=== PATIENT | female | born 1960 | race Caucasian/White ===

== ENCOUNTER 2018-11-10 16:03 | Observation (INO) | payer MEDICARE, MEDICAID ==
--- NOTE | 2018-11-10 16:29 | RAD ---
Chest AP view INDICATION: Chest pain COMPARISON: September 30, 2016 FINDINGS: Lungs:The lungs are clear Cardiac silhouette pulmonary vasculature:The cardiomediastinal silhouette appears within normal limit s. Pleural spaces:No pleural effusion or pneumothorax is demonstrated. Upper abdomen:No abnormality seen. Osseous structures: No acute osseous abnormality. Additional findings:None. IMPRESSION: No acute cardiopulmonary abnormality.
[2018-11-10 16:35] LABS: #Basophils 0.1 thou/uL (0.0-0.2); #Eosinphils 0.1 thou/uL (0.0-0.7); #Lymphocytes 4.4 thou/uL (1.20-3.40); #Monocytes 0.7 thou/uL (0.11-0.59); #Neutrophils 5.2 thou/uL (1.40-6.50); %Basophils 0.9 % (0.0-1.0); %Eosinophils 1.2 % (0.0-10.0); %Lymphocytes 41.9 % (21.0-51.0); %Monocytes 6.3 % (0.0-10.0); %Neutrophils 49.6 % (42.0-75.0); Hemoglobin 13.8 g/dL (12.0-16.0); Mean Corpuscular Hemoglobin 32.6 pg (27.0-31.0); Mean Corpuscular Volume 98.9 fL (78.0-98.0); Mean Platelet Volume 7.8 fL (7.4-10.4); Platelet Count 231 thou/uL (130-400); RBC Distribution Width 11.9 % (11.5-14.5); Red Blood Cell (RBC) Count 4.24 mill/uL (4.20-5.40); White Blood Cell (WBC) Count 10.5 thou/uL (4.8-10.8)
[2018-11-10 16:57] LABS: ALT (SGPT) 16 U/L (8-55); AST (SGOT) 20 U/L (5-34); Albumin 3.9 g/dL (3.5-5.0); Alkaline Phosphatase 85 U/L (40-150); Anion Gap 12 mmol/L (10-20); BUN (Urea Nitrogen) 12 mg/dL (9.8-20.1); Bilirubin, Total 0.3 mg/dL (0.2-1.2); Calc. Creatinine Clearance 0 mL/min (70-130); Calcium 9.4 mg/dL (7.8-10.44); Carbon Dioxide 25 mmol/L (22-29); Chloride 108 mmol/L (98-107); Estimated GFR-MDRD 77; Globulin 2.9 g/dL (2.4-3.5); Glucose 109 mg/dL (70-105); Potassium 3.9 mmol/L (3.5-5.1); Protein, Total 6.8 g/dL (6.0-8.3); Sodium 141 mmol/L (136-145)
[2018-11-10] MEDS ORDERED: Aspirin 325 MG TAB ONE (17:16)
[2018-11-10] MEDS ORDERED: Nitroglycerin 2% Ointment 1 INCH/1 GM Packet ONE (17:16)
[2018-11-10 17:19] LABS: CKMB 1.7 ng/mL (0-6.6)
[2018-11-10] MEDS ORDERED: Aspirin Chewable 81 MG TAB ONE (17:22)
[2018-11-10 19:29] LABS: Bilirubin Negative (Negative); Blood, Urine Negative (Negative); Clarity Clear (Clear); Glucose, Urine (Dipstick) Normal (Negative); Leukocyte Negative Leu/uL (Negative); Nitrite Negative (Negative); Protein, Urine (Dipstick) Negative (Neg-Trace); Urobilinogen Normal mg/dL (Less than 2)
[2018-11-10 19:33] LABS: Troponin I 0.049 ng/mL (< 0.028)
[2018-11-10 22:54] LABS: Troponin I 0.063 ng/mL (< 0.028)
[2018-11-11 00:39] VITALS: BMI 23.6
[2018-11-11] MEDS ORDERED: Acetaminophen 500 MG TAB PO PRN (02:54)
[2018-11-11] MEDS ORDERED: Loratadine 10 MG TAB PO PRN (02:54)
[2018-11-11] MEDS ORDERED: Nitroglycerin 0.2mg/Hour PATCH TD PRN (02:54)
[2018-11-11] MEDS ORDERED: Ondansetron ODT 4 MG TAB PO PRN (02:54)
[2018-11-11] MEDS ORDERED: Nitroglycerin 0.4 MG TAB (25 Tab Bottle) PO PRN (02:54)
[2018-11-11] MEDS ORDERED: Ondansetron PF 4 MG/2 ML Vial IVP PRN (02:54)
[2018-11-11] MEDS ORDERED: Mometasone 100 MCG HFA INHALER INH PRN (02:54)
[2018-11-11] MEDS ORDERED: Cyclobenzaprine 10 MG TAB PO PRN (02:54)
[2018-11-11] MEDS ORDERED: PROVENTIL INHALER 6.7 G (200 INHALATIONS) INH PRN (02:54)
--- NOTE | 2018-11-11 03:57 | HP ---
PRIMARY CARE PROVIDER: Dr. Alessandro Jalloh with [facility]. CHIEF COMPLAINT: Chest pain. HISTORY OF PRESENT ILLNESS: This is a 57-year-old female, who initially presented to [facility] Emergency Department complaining of central chest pain and pressure, intermittent over the last 2 weeks. The patient admits to a significant history of coronary artery disease, status post quadruple bypass in 2008. The patient also states two separate cardiac catheterizations with stent placement x2 in 1997 and 2010. The patient states she takes daily aspirin, but continues to smoke up to two packs of cigarettes daily. The patient admits to exertional chest pain relieved with rest and massaging her shoulders and back. In the emergency room, the patient underwent general evaluation including troponin I evaluation showing elevated levels ranging between 0.040 to 0.063. The patient received aspirin 324 mg and topical nitroglycerin. EKG showed no acute ST-T wave changes. The patient was placed in observation status for evaluation and cardiac workup. PAST MEDICAL HISTORY: 1. Coronary artery disease. 2. Tobacco abuse ongoing. 3. Hyperlipidemia. 4. Hypertension. PAST SURGICAL HISTORY: 1. Status post coronary artery bypass grafting x4 vessels in 2008. 2. Status post cardiac catheterization in 1997 and 2010 with stent placement x2. 3. Status post gastric sleeve. CURRENT MEDICATIONS: 1. Enteric-coated aspirin 81 mg p.o. daily. 2. Lipitor 80 mg p.o. daily. 3. Nexium 40 mg p.o. daily. 4. Metoprolol extended release 25 mg p.o. daily. 5. Vascepa one capsule p.o. b.i.d. 6. Duloxetine 30 mg p.o. daily. 7. Flexeril 10 mg p.o. t.i.d. p.r.n. 8. Fluticasone one spray in each naris daily. 9. Ventolin HFA 1 to 2 puffs inhaled q.6 hours p.r.n. ALLERGIES: TO ADENOSINE. FAMILY HISTORY: Positive for multiple family members with coronary artery disease. SOCIAL HISTORY: Resides in [place], [place]. Disabled. Smokes up to two packs of cigarettes daily. No current alcohol or illicit drug use. REVIEW OF SYSTEMS: CONSTITUTIONAL: Negative for weight loss or gain, ability to conduct usual activities. SKIN: Negative for rash, itching. EYES: Negative for double vision, pain. ENT/MOUTH: Negative for nose bleeding, neck stiffness, pain, tenderness. CARDIOVASCULAR: Negative for palpitations, dyspnea on exertion, orthopnea. RESPIRATORY: Negative for shortness of breath, wheezing, cough, hemoptysis, fever or night sweats. GASTROINTESTINAL: Negative for poor appetite, abdominal pain, heartburn, nausea, vomiting, constipation, or diarrhea. GENITOURINARY: Negative for urgency, frequency, dysuria, nocturia. MUSCULOSKELETAL: Negative for pain, swelling. NEUROLOGIC/PSYCHIATRIC: Negative for anxiety, depression. ALLERGY/IMMUNOLOGIC: Negative for skin rash, bleeding tendency. Otherwise negative except as stated per HPI. PHYSICAL EXAMINATION: VITAL SIGNS: On admission, blood pressure 112/56, pulse 52, respiratory rate 12, temperature 98.4 degrees Fahrenheit, O2 saturation 97% on room air. GENERAL APPEARANCE: This is a 57-year-old female, alert and oriented x3, pleasant, smiling, in no acute distress. HEENT: Pupils are equal, round, reactive to light and accommodation. Extraocular muscles are intact. No scleral icterus. No conjunctival injection. Nares are patent. OP is clear. NECK: Supple. No cervical adenopathy. No thyromegaly. No carotid bruits. No JVD appreciated. Cervical spine with full active and passive range of motion. No meningeal signs noted. CHEST: Diminished breath sounds in bases bilaterally. CARDIOVASCULAR: S1-S2 without noted murmur, rub, or gallop. Mild tenderness to palpation in the left upper chest wall and lateral pectoralis muscle. ABDOMEN: Rounded, soft, nontender, and nondistended. Bowel sounds are positive in all 4 quadrants. There is no hepatosplenomegaly. No abdominal bruits. No rebound or guarding appreciated. EXTREMITIES: Warm and dry with fair turgor. No clubbing, cyanosis, or asymmetric edema appreciated. Pulses palpable distally at the dorsalis pedis, posterior tibial, and popliteal arteries bilaterally. Capillary refill less than 2 seconds. NEUROLOGIC: Cranial nerves 2 through 12 are grossly intact. No focal or lateralizing signs appreciated. PERTINENT LAB AND X-RAY FINDINGS: Basic metabolic profile within normal limits. Troponin I ranged between 0.040 to 0.063. BNP 118. CBC showed a white blood cell count of 10.5, hemoglobin 14, hematocrit 42, MCV 99, platelet count 231 with normal differential. Urinalysis negative. Portable chest x-ray dated 11/10/2018, showed no acute cardiopulmonary process. EKG dated 11/10/2018 by my interpretation shows sinus mechanism with heart rates in the 60s. Normal R-wave progression noted in the precordial leads. Normal axis. No acute ST-T wave changes appreciated. ASSESSMENT AND PLAN: 1. Non-ST elevation myocardial infarction type 2. The patient will be observed on the telemetry unit. We will consult Cardiology Service in the a.m. Continue aspirin 325 mg daily. Nitroglycerin 0.2 mg transdermally daily. Check fasting lipid profile in the a.m. Check 2D transthoracic echocardiogram. The patient will need cardiac catheterization to further delineate coronary anatomy. 2. Coronary artery disease. See #1 above. Continue aspirin 325 mg daily. 3. Hyperlipidemia. Continue Lipitor 80 mg p.o. daily. 4. Hypertension, stable currently. Resume metoprolol 25 mg p.o. daily. 5. Tobacco abuse. We will offer smoking cessation resources prior to discharge. 6. Prophylaxis. SCDs while in bed. Pepcid 20 mg p.o. b.i.d. 7. Code status is full. Surrogate medical decision maker is patient's daughter, Stephanie Fischer. Job ID: [id number]
[2018-11-11 04:41] LABS: Eosinophils 1 % (0-10); Hemoglobin 13.3 g/dL (12.0-16.0); Lymphocytes 42 % (21-51); MDiff Complete? YES; Mean Corpuscular Hemoglobin 32.8 pg (27.0-31.0); Mean Corpuscular Volume 99.3 fL (78.0-98.0); Monocytes 4 % (0-10); Neutrophil 53 % (42-75); Platelet Count 206 thou/uL (130-400); Platelet Morphology Comment Appears Adequate; RBC Morphology Normal; Red Blood Cell (RBC) Count 4.05 mill/uL (4.20-5.40); White Blood Cell (WBC) Count 10.4 thou/uL (4.8-10.8)
[2018-11-11 04:46] LABS: Anion Gap 9 mmol/L (10-20); BUN (Urea Nitrogen) 13 mg/dL (9.8-20.1); Calc. Creatinine Clearance 98 mL/min (70-130); Calcium 9.2 mg/dL (7.8-10.44); Carbon Dioxide 27 mmol/L (22-29); Cardiac Risk 4.3 (Less than 4.5); Chloride 108 mmol/L (98-107); Cholesterol 146 mg/dl (< 200 Desired); Estimated GFR-MDRD Greater than 90; Glucose 94 mg/dL (70-105); HDL Cholesterol 34 mg/dL (>60 Neg Risk); LDL Cholesterol, Calculated 94 mg/dL; Potassium 3.8 mmol/L (3.5-5.1); Sodium 140 mmol/L (136-145); Triglycerides 91 mg/dL (Less than 150)
[2018-11-11] MEDS: (Icosapent Ethyl [Vascepa] 1 GM) PO SCH ×2 (08:15→17:15)
[2018-11-11] MEDS: Atorvastatin Calcium 40 MG TAB PO SCH (08:16)
[2018-11-11] MEDS: Aspirin 325 mg Enteric Coated Tablet PO SCH (08:16)
[2018-11-11] MEDS: DULoxetine 30 MG CAP PO SCH (08:16)
[2018-11-11] MEDS: Famotidine 20 MG TAB PO SCH ×2 (08:16→20:34)
--- NOTE | 2018-11-11 10:19 | PDOC.PN ---
- Subjective Encounter Start Date: 11/11/18 Encounter Start Time: 09:45 Subjective: Patient examined, denies new complaints -: Denies chest pain or SOB today -: States she is worried based on her cardiac hx - Objective Resuscitation Status - Order Detail: 11/11/18 02:48 Resuscitation Status Routine Resuscitation Status: FULL: Full Resuscitation Vital Signs & Weight: Vital Signs (12 hours) Temp Pulse Resp BP Pulse Ox 11/11/18 07:19 98.2 F 47 L 12 111/58 L 96 11/11/18 03:00 98.0 F 53 L 16 116/58 L 97 11/10/18 23:51 98.1 F 53 L 12 108/55 L 98 Weight Weight 59.693 kg I&O: 11/10/18 11/11/18 11/12/18 06:59 06:59 06:59 Intake Total 420 Output Total 425 Balance -5 Result Diagrams: 11/11/18 03:58 11/11/18 03:57 Phys Exam - Physical Examination HEENT: PERRLA, moist MMs Neck: no nodes, no JVD Respiratory: clear to auscultation bilateral Cardiovascular: RRR Gastrointestinal: soft, non-tender Musculoskeletal: pulses present Neurological: normal sensation, moves all 4 limbs Lymphatic: no nodes Psychiatric: normal affect, A&O x 3 Skin: cap refill <2 seconds Dx/Plan (1) Hyperlipemia Code(s): E78.5 - HYPERLIPIDEMIA, UNSPECIFIED Status: Chronic (2) CAD (coronary artery disease) Code(s): I25.10 - ATHSCL HEART DISEASE OF [place] CORONARY ARTERY W/O ANG PCTRS Status: Chronic (3) Hypertension Code(s): I10 - ESSENTIAL (PRIMARY) HYPERTENSION Status: Chronic (4) Tobacco abuse Code(s): Z72.0 - TOBACCO USE Status: Chronic Plan: Tobacco cessation counseling - Plan cont current plan of care Plan includes Echo and consult for Dr. Dumont -: Will continue to monitor, recheck labs in AM * .
[2018-11-11] MEDS ORDERED: Enoxaparin Sodium 60 MG/0.6 ML SYRINGE SC SCH (17:00)
--- NOTE | 2018-11-11 21:28 | CON ---
DATE OF CONSULTATION: CONFERENCE CENTER COORDINATOR: Jhoan Dumont MD REASON FOR CONSULTATION: Chest pressure at rest. HISTORY OF PRESENT ILLNESS: Jd is a very pleasant patient who has a long cardiac history. The patient has a history of coronary artery bypass grafting in the past. She had a stent placed in September 1997 in her LAD. In December, she underwent bypass x4. In 2013, she had 2 more stents placed to the vein grafts that failed, a 2.5 x 26 mm Resolute Integrity in the obtuse marginal and a 2.5 x 26 mm Resolute, written as the circumflex but thought to be possibly a diagonal. The patient has had chest pain off and on, the last night had a severe episode of pain and pressure, brought her to the emergency room. She is pain-free now. The patient also has a history of bariatric surgery with successful weight loss. The patient had "allergic reaction" to adenosine, but she was able to tolerate Lexiscan. She said she was given medicine to reverse the Lexiscan immediately after the test was completed, sounds like she got aminophylline. The patient currently is resting comfortably. MEDICATIONS: At home, she was taking; 1. Aspirin 81 mg a day. 2. Vascepa. 3. Metoprolol succinate 25 mg a day. 4. Albuterol inhaler. 5. Atorvastatin 80 mg a day. REVIEW OF SYSTEMS: CONSTITUTIONAL: No significant weight gain or loss. VISION: No changes. HEARING: No changes. PULMONARY: No cough or wheezing. GASTROINTESTINAL: No nausea, vomiting, or diarrhea. SKIN: No rashes. NEUROLOGIC: No unilateral weakness or numbness. PSYCHIATRIC: No unusual depression or anxiety. PHYSICAL EXAMINATION: GENERAL: This is a pleasant, 5 feet 2 inches tall, 131-pound patient. VITAL SIGNS: Blood pressure is 119/59 followed by 151/67, pulse was earlier 47, now it is 60. HEENT: Eyes, sclerae are nonicteric. Mouth, mucous membranes are moist. NECK: Supple. No lymphadenopathy. LUNGS: Clear. No wheezing, rales, or rhonchi. CARDIAC: Normal S1, normal S2. There is no murmur, rub, or gallop. ABDOMEN: Soft and nontender. No hepatosplenomegaly. EXTREMITIES: Warm and dry. No clubbing. No cyanosis. There is no edema. HEMATOLOGIC: No unusual bruising. VASCULAR: She has good peripheral pulses with palpable posterior tibial and dorsalis pedis pulses. LABORATORY DATA: EKG, normal sinus rhythm, possible old septal infarct. There is T-wave inversion in lead III. Troponin level 0.063, which is in the indeterminate range. ASSESSMENT: 1. Previous bypass surgery with stent implantations. 2. Chest pain at rest, sounds like angina with indeterminate troponin levels. 3. Hypercholesterolemia, well treated, but the LDL is still 94. We will add Zetia. 4. Further recommendations per Dr. Dumont. Option will be repeat stress testing versus cardiac catheterization. We will notify Dr. Dumont. Job ID: [id number]
[2018-11-12] MEDS ORDERED: Ezetimibe 10 MG TAB PO SCH (09:00)
--- NOTE | 2018-11-12 11:44 | NM ---
Radionucleotide stress and rest myocardial perfusion scan with SPECT imaging Left ventricular wall motion evaluation and ejection fraction HISTORY: Chest pain. FINDINGS: Lexiscan protocol. Heterogeneous uptake of radiotracer throughout the left ventricular myoc ardium. Some diaphragmatic attenuation at the base of the inferior wall. No focal perfusion defect or reversibility. QGS analysis of gated SPECT images shows no focal wall motion abnormalities. Ejection fraction calcul ated at 64%. IMPRESSION: Normal myocardial perfusion scan. Normal LVEF.
[2018-11-12 12:01] VITALS: BP 141/65; TEMP 98.3
[2018-11-12] MEDS: (Icosapent Ethyl [Vascepa] 1 GM) PO SCH (12:13)
[2018-11-12] MEDS: DULoxetine 30 MG CAP PO SCH (12:13)
[2018-11-12] MEDS: Aspirin 325 mg Enteric Coated Tablet PO SCH (12:13)
[2018-11-12] MEDS: Famotidine 20 MG TAB PO SCH (12:14)
[2018-11-12] MEDS: Atorvastatin Calcium 40 MG TAB PO SCH (12:14)
[2018-11-12] MEDS ORDERED: Regadenoson 0.4 MG/5 ML SYRINGE ONE (12:34)
[2018-11-12] MEDS ORDERED: Clopidogrel Bisulfate 300 MG TAB PO SCH (13:45)
--- NOTE | 2018-11-12 14:04 | PRG ---
DATE OF SERVICE: 11/12/2018 SUBJECTIVE: Ms. Miles underwent a stress testing today. The myocardial perfusion scan was normal at rest and stress, and normal ejection fraction. The patient is pain-free. OBJECTIVE: VITAL SIGNS: Blood pressure, variables of 110/55 earlier, 141/65 most recently. LUNGS: Clear. CARDIAC: Normal S1 and normal S2. ABDOMEN: Soft and nontender. ASSESSMENT: 1. Episode of angina at rest with indeterminate troponins. 2. Previous bypass and stent implantation. 3. Normal stress test. PLAN: 1. Add Plavix for 30 days. 2. Add Zetia. 3. Nitroglycerin if needed. 4. Follow up with Dr. Dumont in 1 to 2 weeks. Explained to the patient if she has chest pain unrelieved with nitroglycerin, she should come back to the emergency room. Job ID: [id number]
[2018-11-13] MEDS ORDERED: Clopidogrel Bisulfate 75 MG TAB PO SCH (09:00)
--- NOTE | 2018-11-13 13:04 | EKG ---
Test Reason : Blood Pressure : / mmHG Vent. Rate : 062 BPM Atrial Rate : 062 BPM P-R Int : 146 ms QRS Dur : 084 ms QT Int : 438 ms P-R-T Axes : 051 065 026 degrees QTc Int : 444 ms Normal sinus rhythm Septal infarct , age undetermined Abnormal ECG Confirmed by YANIQUE SORTO, ODALIS Gonsales ([id number]), photograph editor LYLY VASQUEZ ([id number]) on 11/13/2018 1:04:01 PM Referred By: Confirmed By:ODALIS CHANEL MD
== END 2018-11-12 14:48 | disposition home or self-care (01) ==
LOC: ERS 16:03 → ERHOLD 17:47 → 2SW 21:00
PROVIDERS: ADMIT Internal Medicine; ATTEND Internal Medicine
DX: R07.89 Other chest pain (principal); I25.10 Atherosclerotic heart disease of native coronary artery without angina pectoris; E78.5 Hyperlipidemia, unspecified; I10 Essential (primary) hypertension; E78.00 Pure hypercholesterolemia, unspecified; F17.210 Nicotine dependence, cigarettes, uncomplicated; Z98.84 Bariatric surgery status; Z95.1 Presence of aortocoronary bypass graft; Z88.8 Allergy status to other drugs, medicaments and biological substances; Z79.82 Long term (current) use of aspirin; Z79.899 Other long term (current) drug therapy
CPT/HCPCS: 71045; 78452; 80048; 80053; 80061; 81003; 82553; 83880; 84484 ×2; 85007; 85025; 85027; 93005; 93017; 93306; 96372; 99285; 99406; A9500; G0378 ×4; 36415; J0280; J1650; J2785

== ENCOUNTER 2020-02-04 11:31 | Observation (INO) | payer MEDICARE, MEDICAID, OTHER ==
[2020-02-04] MEDS ORDERED: Aspirin Chewable 81 MG TAB ONE (11:57)
[2020-02-04 12:19] LABS: #Basophils 0.1 thou/uL (0.0-0.2); #Eosinphils 0.2 thou/uL (0.0-0.7); #Lymphocytes 3.7 thou/uL (1.20-3.40); #Monocytes 0.6 thou/uL (0.11-0.59); #Neutrophils 5.2 thou/uL (1.40-6.50); %Basophils 1.4 % (0.0-1.0); %Eosinophils 1.7 % (0.0-10.0); %Lymphocytes 37.5 % (21.0-51.0); %Monocytes 6.1 % (0.0-10.0); %Neutrophils 53.3 % (42.0-75.0); Hemoglobin 14.9 g/dL (12.0-16.0); Mean Corpuscular HGB CONC 33.8 g/dL (32.0-36.0); Mean Corpuscular Hemoglobin 33.5 pg (27.0-31.0); Mean Corpuscular Volume 99.2 fL (78.0-98.0); Mean Platelet Volume 7.9 fL (7.4-10.4); Platelet Count 267 thou/uL (130-400); RBC Distribution Width 12.2 % (11.5-14.5); Red Blood Cell (RBC) Count 4.46 mill/uL (4.20-5.40); White Blood Cell (WBC) Count 9.8 thou/uL (4.8-10.8)
--- NOTE | 2020-02-04 12:29 | RAD ---
RADIOGRAPH CHEST 1 VIEW: DATE: 02/04/2020 HISTORY: 59-year-old female with chest pain FINDINGS: There are no airspace densities, pulmonary edema, pneumothorax, or cardiomegaly. The lateral costophr enic angles are sharp. There are sternotomy wires. No mediastinal widening or hilar enlargement. IMPRESSION: 1. No acute cardiopulmonary findings. 2. Previous open-heart surgery.
[2020-02-04 12:36] LABS: ALT (SGPT) 15 U/L (8-55); AST (SGOT) 22 U/L (5-34); Albumin 3.7 g/dL (3.5-5.0); Alkaline Phosphatase 89 U/L (40-110); Anion Gap 12 mmol/L (10-20); BUN (Urea Nitrogen) 11 mg/dL (9.8-20.1); Bilirubin, Total 0.4 mg/dL (0.2-1.2); Calc. Creatinine Clearance 0 mL/min (70-130); Calcium 8.8 mg/dL (7.8-10.44); Carbon Dioxide 26 mmol/L (22-29); Chloride 105 mmol/L (98-107); Estimated GFR-MDRD 80; Globulin 3.2 g/dL (2.4-3.5); Glucose 123 mg/dL (70-105); Lipase 47 U/L (8-78); Potassium 3.8 mmol/L (3.5-5.1); Protein, Total 6.9 g/dL (6.0-8.3); Sodium 139 mmol/L (136-145)
[2020-02-04] MEDS ORDERED: Nitroglycerin 0.4 MG TAB (25 Tab Bottle) SL PRN (14:44)
--- NOTE | 2020-02-04 14:50 | PDOC.HHP ---
Hospitalist HPI - History of Present Illness chest pain History of Present Illness: This is a 59-year-old female patient with a history of coronary disease status post CABG many years ago who presents with chest pain. Patient was driving today and noted she had brief chest pain on the right side of her neck which lasted for about 10 to 50 minutes. This recurred again and therefore she decided to come to the ED for further evaluation. She notes having taken nitroglycerin at home which was an pill however it seem to have reduce the pain. On arrival she was pain-free. She noted however the pain migrated to her right jaw and arm prior to disappearing. She denied any cough, wheezing, shortness of breath. She did note having some epigastric pain. Troponin at presentation was negative, no ST or T wave changes concerning for ACS, chest x-ray showed no acute events. Hospitalist was consulted to admit for ACS rule out Hospitalist ROS - Review of Systems Constitutional: denies: fever, chills, sweats, weakness Cardiovascular: reports: chest pain. denies: palpitations, orthopnea, paroxysmal noc. dyspnea Gastrointestinal: denies: nausea, vomiting, abdominal pain, diarrhea Genitourinary: denies: dysuria, frequency, incontinence, hematuria Neurological: denies: weakness, numbness, incoordination, change in speech - Medication Medications: Albuterol sulfate2 puffs every 6 as needed Aspirin 81 mg daily Atorvastatin 80 mg daily Duloxetine 30 mg daily Cyclobenzaprine 10 mg 3 times daily as needed Fluticasone propionate 2 puffs twice daily as needed Metoprolol succinate 25 mg p.o. daily Nexium 40 mg daily Nitroglycerin 20 mg daily PRN Cetirizine 10 mg daily as needed Nitroglycerin 0.4 mg every 5 minutes as needed Clopidogrel 75 mg p.o. daily Ezetimibe 10 mg daily Drug allergies: Adenosine Hospitalist History - Past Medical History Cardiac: reports: CAD Gastrointestinal: reports: GERD - Past Surgical History Past Surgical History: reports: CABG - Family History Other Family History: Carotid artery disease - Social History Smoking Status: Current every day smoker Alcohol: reports: None Living Situation: With Family - Exam General Appearance: awake alert Eye: PERRL, anicteric sclera Heart: RRR, no murmur, no gallops, no rubs, normal peripheral pulses Respiratory: no wheezes, no rales, no ronchi, no tachypnea Gastrointestinal: soft, non-tender, non-distended, normal bowel sounds Extremities: no cyanosis, no clubbing, no edema Neurological: cranial nerve grossly intact, normal sensation to touch Psychiatric: A&O x 3 Hospitalist Results - Labs Result Diagrams: 02/04/20 11:46 02/04/20 11:46 Lab results: WBC 9.8 thou/uL (4.8-10.8) 02/04/20 11:46 Hgb 14.9 g/dL (12.0-16.0) 02/04/20 11:46 Hct 44.2 % (36.0-47.0) 02/04/20 11:46 MCV 99.2 fL (78.0-98.0) H 02/04/20 11:46 Plt Count 267 thou/uL (130-400) 02/04/20 11:46 Neutrophils % 53.3 % (42.0-75.0) 02/04/20 11:46 Sodium 139 mmol/L (136-145) 02/04/20 11:46 Potassium 3.8 mmol/L (3.5-5.1) 02/04/20 11:46 Chloride 105 mmol/L (98-107) 02/04/20 11:46 Carbon Dioxide 26 mmol/L (22-29) 02/04/20 11:46 BUN 11 mg/dL (9.8-20.1) 02/04/20 11:46 Creatinine 0.74 mg/dL (0.6-1.1) 02/04/20 11:46 Glucose 123 mg/dL (70-105) H 02/04/20 11:46 Calcium 8.8 mg/dL (7.8-10.44) 02/04/20 11:46 Total Bilirubin 0.4 mg/dL (0.2-1.2) 02/04/20 11:46 AST 22 U/L (5-34) 02/04/20 11:46 ALT 15 U/L (8-55) 02/04/20 11:46 Alkaline Phosphatase 89 U/L (40-110) 02/04/20 11:46 Troponin I 0.011 ng/mL (< 0.028) 02/04/20 11:46 Serum Total Protein 6.9 g/dL (6.0-8.3) 02/04/20 11:46 Albumin 3.7 g/dL (3.5-5.0) 02/04/20 11:46 Lipase 47 U/L (8-78) 02/04/20 11:46 Hospitalist H&P A/P - Plan Plan: This is a 59-year-old female with a history of coronary disease status post CABG who presents with chest pain. Chest pain Concerning for ACS Initial troponin EKG and chest x-ray not concerning for acute events. We will admit for possible stress test Given a history of reaction to adenosine and stress test reagents will consult cardiology for input. Monitor on telemetry. Coronary disease Continue aspirin and statin/Plavix Continue monitoring. Tobacco abuse Counseled on cessation VT prophylaxisSCD CODE STATUSfull code
[2020-02-04 15:39] LABS: Troponin I Less than 0.010 ng/mL (< 0.028)
[2020-02-04 16:07] VITALS: BMI 25.4
[2020-02-04 18:31] LABS: Troponin I 0.011 ng/mL (< 0.028)
--- NOTE | 2020-02-04 19:05 | CON ---
DATE OF CONSULTATION: 02/04/2020 INDICATION FOR CONSULTATION: A 59-year-old female, with history of known coronary artery disease who has undergone stent placements in 1997 to the left anterior descending artery. She did have bypass surgery. In 2013, she had more stents placed to failed saphenous vein grafts. She was seen in the hospital back in October of last year, at which time she was having some chest discomfort. She underwent stress testing at that time, was found to have no evidence of ischemia. Today, she was driving and noted she had some kind atypical pain, which started in the upper epigastric area and then radiated to the chest area and into the right jaw and over to the left arm and the pain lasted about 10 minutes. She went home, talked to her sister about it and then decided she should come to the emergency room. She was seen in the emergency room. EKG was unremarkable. There was no evidence of ischemia. She also had cardiac enzymes taken and these were also negative. There is no indication she has suffered a myocardial infarction. At this time, she says she has had no further chest pain since this morning. PAST MEDICAL HISTORY: Significant for the coronary artery disease, angioplasty, stent placement, bypass surgery. She has also had history of tobacco abuse. She has a history of gastroesophageal reflux disease. She has history of anxiety, depression. ALLERGIES: SHE SAYS THAT SHE IS ALLERGIC TO ADENOSINE. FAMILY HISTORY: Noncontributory. SOCIAL HISTORY: She continues to smoke up to a pack a day. She denies any alcohol use. MEDICATIONS: Include; 1. Aspirin 81 mg a day. 2. Atorvastatin 80 mg a day. 3. Duloxetine 30 mg a day. 4. Albuterol sulfate. 5. Fluticasone nasal spray. 6. Cyclobenzaprine. 7. Metoprolol 25 mg a day. 8. Nexium 40 mg a day. 9. Cetirizine 10 mg daily. 10. Nitroglycerin 0.4 mg every 5 minutes p.r.n. 11. Plavix 75 mg a day. REVIEW OF SYSTEMS: A 12-point review of systems unremarkable, except that was noted in the history of present illness. She does have occasional leg cramps at night, but not when she is ambulating. PHYSICAL EXAMINATION: GENERAL: Reveals a well-developed, well-nourished female, in no acute distress. HEENT: Her blood pressure is 130/63; heart rate is 53 and regular, shows a sinus rhythm; she is afebrile; respiratory rate is 18; and O2 saturation 99%. HEENT: Unremarkable. I do not hear any significant bruits. There is no JVD. CHEST: Clear to auscultation. CARDIOVASCULAR: Reveals a regular rate and rhythm with normal S1, S2. There is no S3 or S4. There are no significant murmurs, heaves, thrills, bruits, or rubs. ABDOMEN: Soft and nontender. CHEST WALL: There is a well-healed midline surgical incision on the chest area after previous bypass surgery. EXTREMITIES: Show no clubbing, cyanosis, or edema. Pedal pulses are present. NEUROLOGICAL: She appears to be fully intact. There is no evidence of any gross focal motor deficits. LABORATORY DATA: As noted above. Cardiac enzymes are negative. Troponin I is 0.01. Potassium was 3.3, BUN was 11, and creatinine 0.74. WBC of 9.8 and hemoglobin 14.9. IMPRESSION: 1. This is a 59-year-old female, with a history of known coronary artery disease, who had what appears to be some chest discomfort this morning, which lasted about 10 minutes, then resolved. She has had no pain since that time. Her enzymes are negative. EKG is unremarkable. It is unlikely that this was any significant cardiac event. She did have a stress test a year ago which was unremarkable, but based on her history of coronary artery disease, she was admitted and she can certainly undergo another repeat stress test to rule out any evidence of ischemia. If any is noted, then she will need to undergo further evaluation. 2. History of tobacco abuse. I have strongly encouraged her to stop smoking. She did admit that she has started to do vaping and she has only done this for couple a days now and I suggested that she totally also stop this. 3. Hypercholesterolemia. She will continue her Vascepa. She will continue with the atorvastatin also. 4. Hypertension. She will continue with her medications. 5. We will continue to follow the patient with you. Based on the results of the stress test, further recommendations will follow. Job ID: [id number] [facility]
[2020-02-04] MEDS: Nitroglycerin 2% Ointment 1 INCH/1 GM Packet TOP SCH (20:45)
[2020-02-04] MEDS ORDERED: Albuterol 200 PUFF (6.7GM INHALER) INH PRN (21:24)
[2020-02-04] MEDS ORDERED: Aminophylline 50 MG in Sodium Chloride 0.9% 50 ML IVPB SCH (22:30)
[2020-02-05] MEDS: Nitroglycerin 2% Ointment 1 INCH/1 GM Packet TOP SCH ×2 (05:04→14:36)
[2020-02-05 05:24] LABS: Anion Gap 13 mmol/L (10-20); BUN (Urea Nitrogen) 14 mg/dL (9.8-20.1); Calc. Creatinine Clearance 87 mL/min (70-130); Calcium 8.9 mg/dL (7.8-10.44); Carbon Dioxide 21 mmol/L (22-29); Chloride 108 mmol/L (98-107); Estimated GFR-MDRD 88; Glucose 85 mg/dL (70-105); Potassium 4.2 mmol/L (3.5-5.1); Sodium 138 mmol/L (136-145)
[2020-02-05 05:34] LABS: Band 1 % (5-11); Eosinophils 3 % (0-10); Hemoglobin 14.9 g/dL (12.0-16.0); Lymphocytes 59 % (21-51); MDiff Complete? YES; Mean Corpuscular HGB CONC 33.2 g/dL (32.0-36.0); Mean Corpuscular Hemoglobin 32.9 pg (27.0-31.0); Mean Corpuscular Volume 99.2 fL (78.0-98.0); Mean Platelet Volume 7.9 fL (7.4-10.4); Monocytes 4 % (0-10); Neutrophil 33 % (42-75); Platelet Count 244 thou/uL (130-400); RBC Distribution Width 12.2 % (11.5-14.5); Red Blood Cell (RBC) Count 4.54 mill/uL (4.20-5.40); White Blood Cell (WBC) Count 7.8 thou/uL (4.8-10.8)
--- NOTE | 2020-02-05 07:28 | PDOC.HOSPP ---
- Subjective Encounter Date: 02/05/20 Encounter Time: 07:27 Subjective: Patient seen and examined. No new complaints. No overnight events. Reports chest pain resolved. Reports pyrosis, has not had nexium in 2 days. Denies any heart palpitations, swelling LEs, light headedness, SOB, wheezing or cough. Denies any abdominal pain, N/V/D. Been npo since midnight. 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 No further questions. - Objective Vital Signs & Weight: Vital Signs (12 hours) Temp Pulse Resp BP Pulse Ox 02/05/20 05:30 98.3 F 58 L 18 158/70 H 98 02/05/20 00:43 97 Weight Weight 138 lb 12.8 oz I&O: 02/04/20 02/05/20 02/06/20 06:59 06:59 06:59 Intake Total 1080 Balance 1080 Result Diagrams: 02/05/20 04:06 02/05/20 04:06 Radiology Reviewed by me: Yes (CXR) EKG Reviewed by me: Yes (EKG) Hospitalist ROS - Review of Systems Constitutional: denies: fever, chills - Medication Medications: Active Medications Generic Name Dose Route Start Last Admin Trade Name Freq PRN Reason Stop Dose Admin Nitroglycerin 0.5 inch 02/04/20 22:00 02/05/20 05:04 Nitroglycerin 2% Ointment 1 Inch/1 Gm Packet TOP Not Given Q8HR SHREYA - Exam General Appearance: NAD, awake alert Eye: anicteric sclera ENT: normocephalic atraumatic Neck: supple, symmetric Heart: RRR, no murmur, no gallops, no rubs, normal peripheral pulses Respiratory: CTAB, no wheezes, no rales, no ronchi, normal chest expansion, no tachypnea Gastrointestinal: soft, non-tender, normal bowel sounds, no guarding, no rigidity Neurological: no focal deficits Psychiatric: normal affect, A&O x 3 Hosp A/P (1) Chest pain Code(s): R07.9 - CHEST PAIN, UNSPECIFIED Status: Acute (2) CAD (coronary artery disease) Code(s): I25.10 - ATHSCL HEART DISEASE OF [place] CORONARY ARTERY W/O ANG PCTRS Status: Chronic (3) Hyperlipemia Code(s): E78.5 - HYPERLIPIDEMIA, UNSPECIFIED Status: Chronic (4) Hypertension Code(s): I10 - ESSENTIAL (PRIMARY) HYPERTENSION Status: Chronic (5) Tobacco abuse Code(s): Z72.0 - TOBACCO USE Status: Chronic (6) GERD (gastroesophageal reflux disease) Code(s): K21.9 - GASTRO-ESOPHAGEAL REFLUX DISEASE WITHOUT ESOPHAGITIS Status: Chronic - Plan # Chest pain Troponins flat Cardiology recs appreciated 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 Will start protonix. Other chronic conditions per H&P. Discussed case with Dr. Mattson.
[2020-02-05] MEDS ORDERED: Icosapent Ethyl 1 GM CAPSULE PO SCH (08:00)
[2020-02-05] MEDS ORDERED: DULoxetine 60 MG CAP PO SCH (09:00)
[2020-02-05] MEDS ORDERED: Clopidogrel Bisulfate 75 MG TAB PO SCH (09:00)
[2020-02-05] MEDS ORDERED: Atorvastatin Calcium 40 MG TAB PO SCH (09:00)
[2020-02-05] MEDS ORDERED: Aspirin 81 mg Enteric Coated Tablet PO SCH (09:00)
[2020-02-05] MEDS ORDERED: Ezetimibe 10 MG TAB PO SCH (09:00)
[2020-02-05] MEDS ORDERED: Regadenoson 0.4 MG/5 ML SYRINGE ONE (09:08)
--- NOTE | 2020-02-05 12:51 | PDOC.CPN ---
- Subjective Date: 02/05/20 Time: 10:00 - Review of Systems General: denies: fever/chills, weight/appetite/sleep changes, night sweats, fatigue Respiratory: denies: cough, congestion, shortness of breath, exercise intolerance Cardiovascular: denies: chest pain, palpitation, edema, paroxysmal nocturnal dyspnea, orthopnea Gastrointestinal: denies: nausea, vomiting, diarrhea, constipation, abd pain, GI bleeding Musculoskeletal: denies: pain, tenderness, stiffness, swelling, arthriti s/arthralgias Neurological: denies: numbness, syncope, seizure, weakness - Objective Allergies/Adverse Reactions: Allergies Allergy/AdvReac Type Severity Reaction Status Date / Time adenosine Allergy "makes me Verified 02/04/20 16:09 have heart attack and on table" Visit Medications: Current Medications Albuterol Sulfate (Albuterol 200 Puff (6.7gm Inhaler)) 2 puff INH Q4H PRN PRN Reason: SOB &/or Wheezing Aspirin (Aspirin 81 Mg Enteric Coated Tablet) 81 mg PO DAILY [facility] Last Admin: 02/05/20 08:01 Dose: 81 mg Documented by: Atorvastatin Calcium (Atorvastatin Calcium 40 Mg Tab) 80 mg PO DAILY [facility] Last Admin: 02/05/20 08:01 Dose: 80 mg Documented by: Clopidogrel Bisulfate (Clopidogrel Bisulfate 75 Mg Tab) 75 mg PO DAILY [facility] Last Admin: 02/05/20 08:01 Dose: 75 mg Documented by: Duloxetine HCl (Duloxetine 60 Mg Cap) 60 mg PO DAILY [facility] Last Admin: 02/05/20 08:02 Dose: 60 mg Documented by: Ezetimibe (Ezetimibe 10 Mg Tab) 10 mg PO DAILY [facility] Last Admin: 02/05/20 08:02 Dose: 10 mg Documented by: Aminophylline 50 mg/ Sodium (Chloride) 52 mls @ 104 mls/hr IVPB WILLCALL [facility] Stop: 02/06/20 22:31 Metoprolol Succinate (Metoprolol Succinate Xl 25 Mg Tab) 25 mg PO DAILY [facility] Last Admin: 02/05/20 12:19 Dose: Not Given Documented by: Miscellaneous Medication (Icosapent Ethyl 1 Gm Capsule) 1 gm PO BID[facility] Last Admin: 02/05/20 08:06 Dose: Not Given Documented by: Nitroglycerin (Nitroglycerin 2% Ointment 1 Inch/1 Gm Packet) 0.5 inch TOP Q8HR [facility] Last Admin: 02/05/20 05:04 Dose: Not Given Documented by: Nitroglycerin (Nitroglycerin 0.4 Mg Tab (25 Tab Bottle)) 0.4 mg SL Q5MIN PRN PRN Reason: Chest Pain Pantoprazole Sodium (Pantoprazole 40 Mg Tab) 40 mg PO DAILY [facility] Last Admin: 02/05/20 08:02 Dose: Not Given Documented by: Pantoprazole Sodium (Pantoprazole 40 Mg Tab) 40 mg PO DAILY [facility] Last Admin: 02/05/20 08:03 Dose: Not Given Documented by: Vital Signs & Weight: Vital Signs Temp Pulse Resp BP BP Pulse Ox 02/05/20 07:59 98 02/05/20 07:27 97.8 F 65 17 113/61 97 02/05/20 05:30 98.3 F 58 L 18 158/70 H 98 Weight 138 lb 12.8 oz - Physical Exam General: alert & oriented x3 Neck: supple neck Cardiac: regular rate and rhythm Lungs: clear to auscultation Neuro: grossly intact Abdomen: unremarkable Extremities: no edema Musculoskeletal: normal range of motion - Labs Result Diagrams: 02/05/20 04:06 02/05/20 04:06 Troponin/CKMB Troponin I 0.011 ng/mL (< 0.028) 02/04/20 17:47 - Telemetry Sinus rhythms and dysrhythmias: sinus rhythm - Assessment/Plan Assessment/Plan: 1. Chest pain. Negative CIE's. No EKG changes to indicate ischemia. Stress test today. If neg. then okay to d/c. 2. CAD. s/p CABG,stents. Plan for stress test.
--- NOTE | 2020-02-05 13:35 | NM ---
NUCLEAR MEDICINE CARDIAC MYOCARDIAL PERFUSION SPECT EJECTION FRACTION STUDY WALL MOTION CINE: DATE: 02/05/2020 HISTORY: 59 year old smoker with history of myocardial infarction and coronary artery disease, status post CAB G and stent treatment, presents with acute chest pain TECHNIQUE: Number of days: 1 Rest study: Technetium 99m-sestamibi (Cardiolite) dose: 11.0 mCi Pharmacologic stress: Lexiscan dose: 0.4 mg Stress study: Technetium 99m-sestamibi (Cardiolite) dose: 30.0 mCi FINDINGS: CARDIAC (MYOCARDIAL PERFUSION) SPECT There are no reversible myocardial perfusion defects. EJECTION FRACTION STUDY Left ventricular EF = 77 % WALL MOTION CINE The septum is akinetic or very hypokinetic IMPRESSION: No evidence of reversible ischemia.
[2020-02-05 16:14] LABS: SARS-CoV-2 MS2 Positive; SARS-CoV-2 N Gene Negative; SARS-CoV-2 S Gene Negative; SARS-CoV-2 by NAA Not Detected (NotDetected); SARS-CoV-2 orf1ab Negative
[2020-02-05 17:14] VITALS: BP 156/72; TEMP 97.9
--- NOTE | 2020-02-05 23:19 | DIS ---
DATE OF ADMISSION: 02/04/2020 DATE OF DISCHARGE: 02/05/2020 DISCHARGE DIAGNOSES: 1. Chest pain. 2. Coronary artery disease. 3. Hypertension. 4. Gastroesophageal reflux disease. 5. Tobacco abuse. BRIEF HOSPITAL COURSE: This is a 59-year-old female patient, with history of coronary artery disease, status post CABG, who presented with chest pain on the day of admission. She noted pain when she was driving when she got home. Initial evaluation, EKG was not concerning, chest x-ray showed no acute events. Troponins remained flat. She was admitted for a stress test, which turned out negative. She was discharged home to follow up with a painting trades worker. DISCHARGE PHYSICAL EXAMINATION: GENERAL: Patient is awake, in no acute distress. CARDIOVASCULAR SYSTEM: S1 and S2 present and normal. No murmurs, gallops, or rubs. RESPIRATORY SYSTEM: Air entry adequate bilaterally. ABDOMEN: Benign. EXTREMITIES: No edema. CONSULTATIONS: Dr. Schaefer - Cardiology. DISCHARGE CONDITION: Stable. Job ID: [id number]
== END 2020-02-05 17:25 | disposition home or self-care (01) ==
LOC: ERS 11:31 → 2SW 13:20
PROVIDERS: ADMIT Student in an Organized Health Care Education/Training Program; ATTEND Student in an Organized Health Care Education/Training Program
DX: R07.89 Other chest pain (principal); I25.10 Atherosclerotic heart disease of native coronary artery without angina pectoris; K21.9 Gastro-esophageal reflux disease without esophagitis; I10 Essential (primary) hypertension; E78.00 Pure hypercholesterolemia, unspecified; E78.5 Hyperlipidemia, unspecified; F17.210 Nicotine dependence, cigarettes, uncomplicated; Z79.82 Long term (current) use of aspirin; Z79.899 Other long term (current) drug therapy; Z88.8 Allergy status to other drugs, medicaments and biological substances; Z95.1 Presence of aortocoronary bypass graft; Z20.828 Contact with and (suspected) exposure to other viral communicable diseases
CPT/HCPCS: 71045; 78452; 80048; 80053; 83690; 84484 ×2; 85025 ×2; 93005; 93017; 94760; 99285; A9500; U0003; 36415; 87635; G0378; J2785